=== PATIENT | male | born 1945 | race Caucasian/White ===

== ENCOUNTER → 2019-08-28 | Outpatient (CLI) | payer MEDICARE | END | disposition home or self-care (01) | LOC: ROC 08-12 10:10 | PROVIDERS: ATTEND Radiology Radiation Oncology | DX: D33.3 Benign neoplasm of cranial nerves (principal); H91.92 Unspecified hearing loss, left ear; E11.9 Type 2 diabetes mellitus without complications; I10 Essential (primary) hypertension; Z79.899 Other long term (current) drug therapy | CPT/HCPCS: G0463 ==

== ENCOUNTER → 2019-09-08 | Outpatient (CLI) | payer MEDICARE ==
[~2019-09-08] MED LIST: GADOTERATE 10 MMOL/20 ML SYR ONE
== END | disposition home or self-care (01) ==
LOC: CFH 13:40
PROVIDERS: ATTEND Radiology Radiation Oncology
DX: D36.10 Benign neoplasm of peripheral nerves and autonomic nervous system, unspecified (principal); I67.82 Cerebral ischemia; H70.91 Unspecified mastoiditis, right ear
CPT/HCPCS: 70553; A9575

== ENCOUNTER → 2020-03-31 | Outpatient (CLI) | payer MEDICARE | END | disposition home or self-care (01) | LOC: ROC 07:38 | PROVIDERS: ATTEND Radiology Radiation Oncology | DX: D33.3 Benign neoplasm of cranial nerves (principal) | CPT/HCPCS: G0463 ==

== ENCOUNTER → 2020-10-21 | Outpatient (CLI) | payer MEDICARE ==
[~2020-10-21] MED LIST changes: +ALLO100T30 PO; +AMLO5TAB4 PO; +CARV6.25 PO; +CEFD300C37 PO; +DIPH25CA61 PO; -GADOTERATE 10 MMOL/20 ML SYR ONE; +GADOTERATE 5 MMOL/10 ML VIAL ONE; +GADOTERATE 7.5 MMOL/15 ML VIAL ONE; +GLIM4TAB8 PO; +INDO50CA15 PO; +LORA10TA41 PO; +LOSA25TA12 PO; +METF500T17 PO; +MONT10TA17 PO; +OMEP20CA20 PO; +PRAV80TA2 PO; +PREG150C44 PO
== END | disposition home or self-care (01) ==
LOC: RAD 12:16
PROVIDERS: ATTEND Radiology Radiation Oncology
DX: D33.3 Benign neoplasm of cranial nerves (principal); E11.9 Type 2 diabetes mellitus without complications; I10 Essential (primary) hypertension; G31.89 Other specified degenerative diseases of nervous system; H70.91 Unspecified mastoiditis, right ear
CPT/HCPCS: 70553; A9575

== ENCOUNTER 2020-10-22 08:18 | Outpatient (CLI) | payer MEDICARE ==
[~2020-10-22 08:18] MED LIST changes: -GADOTERATE 5 MMOL/10 ML VIAL ONE; -GADOTERATE 7.5 MMOL/15 ML VIAL ONE
== END 2020-10-22 23:59 | disposition home or self-care (01) ==
LOC: ROC 08:18
PROVIDERS: ATTEND Radiology Radiation Oncology
DX: Z08 Encounter for follow-up examination after completed treatment for malignant neoplasm (principal); D33.3 Benign neoplasm of cranial nerves; I10 Essential (primary) hypertension; E11.9 Type 2 diabetes mellitus without complications
CPT/HCPCS: G0463

== ENCOUNTER 2021-05-11 10:12 | Outpatient (CLI) | payer MEDICARE ==
[2021-05-11] MEDS ORDERED: GADOTERATE 5 MMOL/10ML SYR ONE (12:00)
== END 2021-05-11 23:59 | disposition home or self-care (01) ==
LOC: RAD 10:12
PROVIDERS: ATTEND Radiology Radiation Oncology
DX: D33.3 Benign neoplasm of cranial nerves (principal); J34.89 Other specified disorders of nose and nasal sinuses; G31.9 Degenerative disease of nervous system, unspecified
CPT/HCPCS: 70553; A9575